=== PATIENT | male | born 1975 | race Caucasian/White ===

== ENCOUNTER 2018-07-24 18:00 | Inpatient (IN) | payer MEDICARE, MEDICAID ==
[~2018-07-24] VITALS: Ht 182.9 cm; Wt 147.4 kg
[~2018-07-24 18:00] MED LIST: AMLODIPINE BESY10 MG PO; BENTYL20 MG PO; BLOOD PRESSURE PILL; CLARITIN10 MG PO; CLONAZEPAM 1 MG1 M1 PO; CLONAZEPAM2 MG PO; FLONASE 0.05%50 MCG NASAL; HYDRALAZINE 2525 MG PO; HYDROCHLOROTHIA25 M2 PO; LIPITOR80 MG PO; PEPCID40 MG PO; PREDNISONE50 MG PO; PRINIVIL20 M1 PO; TRANDATE 200 M200 M1 PO; TRICOR145 MG; ULTRACET TABLE1 EACH PO; ZANTAC 150MG T150 M1 PO; ZOFRAN ODT4 MG PO; tricor
[2018-07-24 18:07] VITALS: BP 176/123
[2018-07-24] MEDS ORDERED: COREG25 MG PO (18:15)
[2018-07-24] MEDS ORDERED: ELIQUIS5 MG PO (18:15)
[2018-07-24 18:52] LABS: HEMATOCRIT 40.8 % (42.0-52.0); HEMOGLOBIN 14.2 gm/dL (14.0-18.0); MCHC 34.8 g/dL (28.0-37.0); MCV 89.2 fL (80.0-100.0); MPV 8.1 fl. (7.2-11.1); NUCLEATED RBCS 0 /100WBC; PLATELET COUNT* 297 thou/uL (150-400); RBC 4.58 mil/uL (4.50-6.00); RDW-CV 14.3 % (10.5-14.5); WBC 12.3 thou/uL (4.0-11.0)
[2018-07-24 19:02] LABS: ANION GAP 6 mmol/L (7-16); BUN 44 mg/dL (7-18); CALCIUM 8.6 mg/dL (8.5-10.1); CHLORIDE 98 mmol/L (98-107); CO2 29 mmol/L (21-32); CREATININE 1.8 mg/dL (0.6-1.3); POTASSIUM 3.6 mmol/L (3.5-5.1); SODIUM 133 mmol/L (136-145)
[2018-07-24 19:09] LABS: ALBUMIN 3.1 g/dL (3.4-5.0); ALKALINE PHOSPHATASE 66 U/L (46-116); TOTAL BILIRUBIN 0.4 mg/dL (<0.1-1.0); TOTAL PROTEIN 6.4 g/dL (6.4-8.2); TROPONIN-I LEVEL <0.06 ng/mL (<0.06)
[2018-07-24 19:14] LABS: PLATELET ESTIMATE ADEQUATE; POLYCHROMASIA 1+
[2018-07-24 19:28] LABS: GLUCOSE 285.6 mg/dL (70-99); SGOT 13.2 U/L (15-37); SGPT 21.6 U/L (30-65)
[2018-07-24 19:39] LABS: ABSOLUTE LYMPHOCYTES 2.5 thou/uL (0.8-5.3)
[2018-07-24 19:40] LABS: ABSOLUTE MONOCYTES 0.9 thou/uL (0.0-1.2)
[2018-07-24 20:48] VITALS: BP 168/100
[2018-07-24 21:15] VITALS: BP 192/112
[2018-07-24] MEDS ORDERED: NORVASC10 MG PO (21:40)
--- NOTE | 2018-07-25 00:22 | NUR ---
PATIENT FROM ER VIA CART TO ROOM 312. PT A/O X4 AND UP AD DEVAUGHN WITH STEADY GAIT. PT ON O2 @ 2 LITERS; DOES NOT WEAR OXYGEN AT HOME. PT JUST LEFT [facility] WITH RESPIRATORY ISSUES STATING HE WAS UNHAPPY WITH THE CHANGES DRS MADE IN HIS MEDICATIONS. PT WITH BLOOD PRESSURE OF 192/112 ON ADMISSION TO THE FLOOR. PT SAID HE HAD NOT TAKE HIS NIGHT TIME HOME MEDS YET. CALL PLACED TO DR MCCORMICK AND HOME MEDICATIONS REORDERED. PT ORIENTED TO ROOM/POLICIES AND VERBALIZES UNDERSTANDING. FREQUENTLY USED ITEMS AND CALL LIGHT WITHIN REACH. SIDERAILS UPX2. WILL CONTINUE TO MONITOR.
[2018-07-25 01:25] VITALS: BP 192/116
[2018-07-25 03:33] VITALS: BP 168/120
--- NOTE | 2018-07-25 06:07 | NUR ---
PATIENT SLEPT WELL DURING THIS SHIFT. PT UP TO BATHROOM WITH STEADY GAIT. PT ON O2 @ 2 LITERS PER NASAL CANNULA. SATS CHECKED AFTER RETURNING FROM BATHROOM WITH NO O2 AND FOUND TO BE 90-91%. PT INSTRUCTED TO PUT O2 BACK ON AFTER RETURNING TO BED. 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 PT WITH SALINE LOCK IN LT WRIST. PT HAS NON PRODUCTIVE COUGH. PT WITH HIGH BLOOD PRESSURE BUT WAS GIVEN HYDRAZALINE 10MG IV IN ER AND NIGHT TIME LABETALOL GIVEN AFTER MED WAS REORDERED. PT C/O ABDOMINAL/RIB PAIN FROM COUGHING. HYDROCODONE 5/325MG PO GIVEN X1. PT DENIES NEEDS AT THIS TIME. FREQUENTLY USED ITEMS AND CALL LIGHT WITHIN REACH. WILL CONTINUE TO MONITOR.
[2018-07-25 07:55] VITALS: BP 155/106
--- NOTE | 2018-07-25 09:32 | EKG ---
[place] [address] ELECTROCARDIOGRAM REPORT Name: SHAUNA SAUER Room: [address] ADM IN .R.#: [id number] Admission: 07/24/18 Attend Phys: Armani Linares MD Discharge: Date of : 77 Report #: [id number] THIS REPORT FOR: //name// [facility] ED Test Date: 2018-07-24 Test Time: 18:21:09 Pat Name: SHAUNA SAUER Department: Room: [facility] Gender: M Oracle Applications Analyst: Sona ABRAMS : 1975 Requested By: Vy Hwang Order Number: [id number] MD: Chuckie Skinner Measurements Intervals [place] Rate: 88 P: 10 AL: 115 QRS: 7 QRSD: 107 T: 141 QT: 359 QTc: 435 Interpretive Statements Sinus rhythm Borderline short AL interval Probable left atrial enlargement Abnormal R-wave progression, early transition LVH with secondary repolarization abnormality Compared to ECG 12/16/2016 21:34:41 Left ventricular hypertrophy now present Electronically Signed On 07-25-2018 9:32:43 SINTER PRESS OPERATOR by Chuckie Skinner [email or web address] <ELECTRONICALLY SIGNED> By: Chuckie Skinner MD, [facility] 07/25/18 0932 182 182 Chuckie Skinner MD, [facility] /EPI
[2018-07-25 10:16] LABS: CALCIUM 8.5 mg/dL (8.5-10.1); CREATININE 1.7 mg/dL (0.6-1.3); MAGNESIUM 2.1 mg/dL (1.8-2.4); POTASSIUM 4.3 mmol/L (3.5-5.1)
--- NOTE | 2018-07-25 11:23 | 2DMMODE ---
[place] [address] 2 D/M-MODE ECHOCARDIOGRAM Name: SHAUNA SAUER JR Room: [address] IN [facility]#: [id number] Admission: 07/24/18 Attend Phys: Armani Linares, Discharge: Date of : 77 Date of Service: 07/25/18 1123 Report #: [id number] THIS REPORT FOR: //name// APPROVED REPORT Study performed: 07/25/2018 10:43:22 EXAM: Comprehensive 2D, Doppler, and color-flow Echocardiogram Patient Location: In-Patient Room #: [facility] Status: routine BSA: 2.62 HR: 88 bpm BP: 155/106 mmHg Rhythm: NSR Other Information Study Quality: Good Indications COPD Dyspnea 2D Dimensions IVSd: 20.33 (7-11mm) LVOT Diam: 25.37 (18-24mm) LVDd: 54.09 mm PWd: 14.89 (7-11mm) Ascending Ao: 36.83 (22-36mm) LVDs: 35.15 (25-40mm) Aortic Root: 40.71 mm Volumes Left Atrial Volume (Systole) LA ESV Index: 34.60 mL/m2 Aortic Valve AoV Peak Dennis.: 1.21 m/s AO Peak Gr.: 5.86 mmHg LVOT Max P.49 mmHg AO Mean Gr.: 3.13 mmHg LVOT Mean P.39 mmHg LVOT Max V: 1.27 m/s AO V2 VTI: 17.06 cm LVOT Mean V: 0.85 m/s JACQUELINE (VTI): 6.08 cm2 LVOT V1 VTI: 20.50 cm Mitral Valve E/A Ratio: 1.09 MV Decel. Time: 264.20 ms MV E Max Dennis.: 0.85 m/[place] [address] 2 D/M-MODE ECHOCARDIOGRAM Name: SHAUNA SAUER JR Room: [address] IN [facility].#: [id number] Admission: 07/24/18 Attend Phys: Armani Linares, Discharge: Date of : 77 Date of Service: 07/25/18 1123 Report #: [id number] MV PHT: 76.62 ms MVA (PHT): 2.87 cm2 TDI E/Lateral E': 7.73 E/Medial E': 12.14 Medial E' Dennis.: 0.07 m/s Lateral E' Dennis.: 0.11 m/s Pulmonary Valve PV Peak Dennis.: 1.08 m/s PV Peak Gr.: 4.68 mmHg Left Ventricle The left ventricle is normal size. There is normal LV segmental wall motion. Moderatele severe concentric left ventricular hypertrophy. Left ventricular systolic function is normal. The left ventricular ejection fraction is within the normal range. LVEF is 60-65%. The left ventricular diastolic function is normal. Right Ventricle The right ventricle is normal size. The right ventricular systolic function is normal. Atria Left atrium is mildly dilated. The right atrium size is normal. Aortic Valve The aortic valve is normal in structure. No aortic regurgitation is present. There is no aortic valvular stenosis. Mitral Valve The mitral valve is normal in structure. There is no mitral valve regurgitation noted. No evidence of mitral valve stenosis. Tricuspid Valve The tricuspid valve is normal in structure. Unable to assess PA pressure. Trace tricuspid regurgitation. Pulmonic Valve The pulmonary valve is normal in structure. There is no [place]mon[place] [address] 2 D/M-MODE ECHOCARDIOGRAM Name: SHAUNA SAUER JR Room: [address]#: [id number] Admission: 07/24/18 Attend Phys: Armani Linares, Discharge: Date of : 77 Date of Service: 07/25/18 1123 Report #: [id number] Great Vessels The aortic root is normal in size. IVC is not visualized. Pericardium There is no pericardial effusion. <Conclusion> Moderatele severe concentric left ventricular hypertrophy. LVEF is 60-65%. Left atrium is mildly dilated. <ELECTRONICALLY SIGNED> By: Chuckie Skinner MD, [facility] 07/25/18 1123 1123 1123 Chuckie kSinner MD, [facility] /INF
--- NOTE | 2018-07-25 12:22 | NUR ---
SW met with pt to complete initial assessment, introduce self, and SW role. Pt sleepy but would answer questions. Pt lives at home with his . Pt does not have home oxygen. Pt did not express any dc needs at this time.
[2018-07-25 15:40] VITALS: BP 147/107
--- NOTE | 2018-07-25 19:34 | NUR ---
PATIENT RESTING IN BED. PATIENT IS UP AD DEVAUGHN IN ROOM. PATIENT HAS COMPLAINTS OF ABDOMINAL PAIN WITH COUGHING, TREATED ADEQUATLY WITH MEDICATION. PATIENT HAS GOOD APPETITE. PATIENT DENIES ANY NEEDS AT THIS TIME. CALL LIGHT WITHIN REACH. WILL CONTINUE TO MONITOR.
[2018-07-25 21:10] LABS: GLYCOHEMOGLOBIN (HGB A1C) 6.6 % (4.8-5.6)
[2018-07-26 00:30] VITALS: BP 153/96
[2018-07-26 04:01] VITALS: BP 151/91
[2018-07-26 08:30] VITALS: BP 169/99
[2018-07-26] MEDS ORDERED: AZITHROMYCIN 2250 MG PO (09:27)
[2018-07-26] MEDS ORDERED: GLUCOPHAGE500 MG PO (09:27)
[2018-07-26] MEDS ORDERED: PREDNISONE 10 M10 M1 PO (09:27)
[2018-07-26] MEDS ORDERED: CEFDINIR300 MG PO (09:27)
[2018-07-26] MEDS ORDERED: VENTOLIN HFA 1818 GM INH (09:28)
[2018-07-26 12:06] VITALS: BP 144/104
[2018-07-26 12:14] VITALS: BP 144/104
--- NOTE | 2018-07-26 13:16 | NUR ---
PATIENT GIVEN DISCHARGE INSTRUCTIONS AND PRESCRIPTONS AT THIS TIME. PATIENT'S IV AND CLERK OF SUPERIOR COURT REMOVED. PATIENT VERBALIZED UNDERSTANDING IN REGARDS TO FOLLOW UP APPOINTMENTS, NEW MEDICATIONS, AND S/S TO CALL PHYSICIAN. PATIENT AMBULATED OFF NURSING UNIT WITH NURSING STAFF. PATIENT DISCHARGED HOME WITH ALL BELONGINGS.
--- NOTE | 2018-07-28 08:36 | CON ---
[address] [address] CONSULTATION Name: SHAUNA SAUER JR Room: [address] IN .R.#: [id number] Admission: 07/24/18 Attend Phys: Armani Linares MD Discharge: 07/26/18 Date of : 77 Report #: [id number] THIS REPORT FOR: //name// CC: Armani Linares [facility] physician/PCP REASON FOR CONSULTATION: COPD exacerbation. HISTORY OF PRESENT ILLNESS: This is a 42-year-old male patient who told me he was hospitalized at [facility] just a couple of days ago. He went home for 1 day, then readmitted at this facility. He had been complaining of cough associated with shortness of breath or wheezes of 1 week duration. He was admitted to [facility] and treated according to him for bronchitis. He had also some pain in the abdominal muscles, rated severe, cough. The shortness of breath is worse with exertion. He had been wheezing. He was given steroids during the hospitalization at [facility] and discharged home. The patient told me he has been on anticoagulation for a few months now for atrial fibrillation, and he has diastolic heart failure. He did not miss any of his anticoagulation. He denied any fever, chills or sick contact, sore throat, nasal discharge or obstruction. He reported he has snoring, daytime sleepiness and uninterrupted sleep, and he had been advised to have a sleep study before, but he never had the chance to have it done. ALLERGIES: PENICILLIN. HOME MEDICATIONS: Labetalol, Coreg, apixaban, amlodipine and he was on steroid taper. PAST MEDICAL HISTORY: Pancreatitis, hypertension, atrial fibrillation, anticoagulation, diastolic heart failure, coronary artery disease, obesity, chronic kidney disease. PAST SURGICAL HISTORY: No major chest surgery. FAMILY HISTORY: Reviewed with the patient, noncontributory. No family history of asthma. SOCIAL HISTORY: He continues to smoke 1 pack per day since he was 15 years old, does not drink alcohol. Does not abuse drugs. REVIEW OF SYSTEMS: He had no fever, no chills, no blurring of vision. He had no sinus symptoms. No dysphagia or dysarthria. He has no nausea, no vomiting, no dysuria, no frequency, no urgency, no bleeding from any orifice. The rest of the review system was negative. PHYSICAL EXAMINATION: VITAL SIGNS: He was on 2 L oxygen, O2 saturation 97%, blood pressure 155/100, [place] [address] CONSULTATION Name: SHAUNA SAUER JR Room: [address]#: [id number] Admission: 07/24/18 Attend Phys: Armani Linares MD Discharge: 07/26/18 Date of : 77 Report #: [id number] pulse rate of 102, temperature of 37.1. GENERAL: Overweight gentleman with a BMI of 44.1. Speaks in full sentences, no distress. HEENT: Head normocephalic, atraumatic. Pupils are reactive to light. Not pale, not jaundiced. Fairly looks healthy and normal. NECK: Full range of movement. Trachea central. CHEST: Diminished air movement bilaterally with prolonged expiratory phase and wheezes, nontender. HEART: S1, S2, no murmur. ABDOMEN: Slightly has superficial tenderness, obese, soft, positive bowel sounds. EXTREMITIES: Lower extremity, trace edema, no calf tenderness. NEUROLOGIC: Moving 4 extremities spontaneously. No focal weakness. Cranial nerves grossly normal. SKIN: Normal for age and race. PSYCHIATRIC: Mood and affect appropriate. Good insight, judgment. LABORATORY DATA: His chest x-ray that was done in the ER did not show acute pathology. His white blood count 12.3, hemoglobin 14.2 and platelets of 297. His creatinine is 1.8, bicarbonate 29, sodium 133. His BNP was elevated. IMPRESSION: 1. Acute hypoxic respiratory failure. 2. Bronchitis. 3. Bronchospasm. 4. Diastolic heart failure. 5. Paroxysmal atrial fibrillation. 6. Acute renal failure, likely on chronic. 7. Obesity. 8. Hypersomnia. 9. Snoring. PLAN: At this point, the patient will be treated for his bronchospasm. He will be on antibiotics, scheduled nebulization treatment, steroids, continue the anticoagulation. It is unlikely thromboembolic disease given the fact he is on Eliquis and he did not miss any dose. Would monitor fluid status and avoid fluid overload. I asked for records from [facility] including echocardiogram catheterization report and consultation. The patient was counseled about smoking cessation. We will check alpha 1 antitrypsin level[address] [place] [address] CONSULTATION Name: SHAUNA SAUER JR Room: [address]#: [id number] Admission: 07/24/18 Attend Phys: Armani Linares MD Discharge: 07/26/18 Date of : 77 Report #: [id number] Thank you for the consult. We will follow along with you. <ELECTRONICALLY SIGNED> By: Fernando Lopez MD 07/28/18 0836 [id number] [id number] Courtney MD /nt
== END 2018-07-26 13:16 | disposition home or self-care (01) | DRG 193 ==
LOC: M.ERS 18:00 → M.TBA-ER 19:49 → M.3W 19:49
PROVIDERS: Internal Medicine; Nurse Practitioner Family; ADMIT Internal Medicine
DX: J18.0 Bronchopneumonia, unspecified organism (principal); N17.0 Acute kidney failure with tubular necrosis; J96.01 Acute respiratory failure with hypoxia; I13.0 Hypertensive heart and chronic kidney disease with heart failure and stage 1 through stage 4 chronic kidney disease, or unspecified chronic kidney disease; J44.1 Chronic obstructive pulmonary disease with (acute) exacerbation; I50.32 Chronic diastolic (congestive) heart failure; Z68.41 Body mass index [BMI] 40.0-44.9, adult; J44.0 Chronic obstructive pulmonary disease with (acute) lower respiratory infection; I25.10 Atherosclerotic heart disease of native coronary artery without angina pectoris; E66.9 Obesity, unspecified; I48.0 Paroxysmal atrial fibrillation; G47.10 Hypersomnia, unspecified; F17.210 Nicotine dependence, cigarettes, uncomplicated; N18.3 Chronic kidney disease, stage 3 (moderate); T38.0X5A Adverse effect of glucocorticoids and synthetic analogues, initial encounter; E11.65 Type 2 diabetes mellitus with hyperglycemia; E11.22 Type 2 diabetes mellitus with diabetic chronic kidney disease; Z88.0 Allergy status to penicillin; Z79.899 Other long term (current) drug therapy

== ENCOUNTER 2018-07-29 17:26 | Emergency (ER) | payer MEDICARE, MEDICAID ==
[~2018-07-29] VITALS: Ht 182.9 cm; Wt 106.6 kg
[~2018-07-29 17:26] MED LIST changes: +AZITHROMYCIN 2250 MG PO; +CEFDINIR300 MG PO; +COREG25 MG PO; +ELIQUIS5 MG PO; +GLUCOPHAGE500 MG PO; +NORVASC10 MG PO; +PREDNISONE 10 M10 M1 PO; +VENTOLIN HFA 1818 GM INH
[2018-07-29] MEDS ORDERED: CHLORTHALIDONE25 MG PO (17:51)
[2018-07-29] MEDS ORDERED: AZITHROMYCIN250 MG PO (17:51)
[2018-07-29] MEDS ORDERED: NYSTATIN100000 UNI SW&SWALLOW (18:21)
[2018-07-29 18:31] VITALS: BP 142/107
== END 2018-07-29 18:34 | disposition home or self-care (01) ==
LOC: M.ERS 17:26
DX: B37.0 Candidal stomatitis (principal); I48.91 Unspecified atrial fibrillation; I11.0 Hypertensive heart disease with heart failure; I50.30 Unspecified diastolic (congestive) heart failure; I12.9 Hypertensive chronic kidney disease with stage 1 through stage 4 chronic kidney disease, or unspecified chronic kidney disease; E11.22 Type 2 diabetes mellitus with diabetic chronic kidney disease; N18.2 Chronic kidney disease, stage 2 (mild); E66.9 Obesity, unspecified; Z68.31 Body mass index [BMI] 31.0-31.9, adult; F17.210 Nicotine dependence, cigarettes, uncomplicated; Z88.0 Allergy status to penicillin